=== PATIENT | male | born 1980 | race African-American/Black ===

== ENCOUNTER 2020-12-07 07:04 | Inpatient (IN) | payer MEDICARE, MEDICAID ==
[2020-12-07] MEDS ORDERED: Ondansetron PF 4 MG/2 ML Vial ONE (07:07)
[2020-12-07 07:36] LABS: #Monocytes 0.2 thou/uL (0.11-0.59); #Neutrophils 10.3 thou/uL (1.40-6.50); %Basophils 0.2 % (0.0-1.0); %Lymphocytes 8.8 % (21.0-51.0); %Monocytes 1.3 % (0.0-10.0); %Neutrophils 89.7 % (42.0-75.0); Hemoglobin 14.2 g/dL (14.0-18.0); Mean Corpuscular HGB CONC 32.3 g/dL (32.0-36.0); Mean Corpuscular Hemoglobin 33.4 pg (27.0-31.0); Mean Platelet Volume 5.7 fL (7.4-10.4); Platelet Count 498 thou/uL (130-400); Red Blood Cell (RBC) Count 4.25 mill/uL (4.70-6.10); White Blood Cell (WBC) Count 11.5 thou/uL (4.8-10.8)
[2020-12-07 07:52] LABS: Acetaminophen Less than 6.0 mcg/mL (10.0-30.0); Alcohol Less than 10 mg/dL (Less than 10); Salicylate Less than 8.0 mg/dL (15.0-30.0)
[2020-12-07 07:56] LABS: ALT (SGPT) 10 U/L (8-55); AST (SGOT) 17 U/L (5-34); Albumin 4.1 g/dL (3.5-5.0); Alkaline Phosphatase 79 U/L (40-110); Anion Gap 15 mmol/L (10-20); BUN (Urea Nitrogen) 6 mg/dL (8.9-20.6); Bilirubin, Total 0.5 mg/dL (0.2-1.2); Calc. Creatinine Clearance 0 mL/min (70-130); Calcium 9.5 mg/dL (7.8-10.44); Carbon Dioxide 28 mmol/L (22-29); Chloride 105 mmol/L (98-107); Globulin 4.1 g/dL (2.4-3.5); Glucose 134 mg/dL (70-105); Lipase 11 U/L (8-78); Potassium 3.9 mmol/L (3.5-5.1); Protein, Total 8.2 g/dL (6.0-8.3); Sodium 144 mmol/L (136-145)
[2020-12-07] MEDS ORDERED: Promethazine HCl 25 MG/ML VIAL ONE (08:24)
[2020-12-07 09:24] LABS: Bilirubin Negative (Negative); Blood, Urine Trace (Negative); Glucose, Urine (Dipstick) Negative (Negative); Ketone, Urine 15 mg/dL (Negative); Leukocyte Trace (Negative); Nitrite Negative (Negative); Protein, Urine (Dipstick) 30 mg/dL (Neg-Trace)
[2020-12-07 09:33] LABS: Amphetamine Not Detected (NotDetected); Barbiturates Screen Not Detected (NotDetected); Benzodiazepine Screen Not Detected (NotDetected); Cocaine Metabolite Screen Not Detected (NotDetected); Medtox Control Line Valid? VALID (VALID); Methadone Not Detected (NotDetected); Methamphetamine Not Detected (NotDetected); Opiate Screen Not Detected (NotDetected); Oxycodone Screen Not Detected (NotDetected); Phencyclidine (PCP) Not Detected (NotDetected); THC/Cannabinoid Screen Detected (NotDetected); Tricyclic Screen Not Detected (NotDetected)
[2020-12-07 09:34] LABS: Clarity Hazy (Clear); pH, Urine Greater/Equal 9.0 (5.0-9.0)
[2020-12-07 09:35] LABS: Bacteria/HPF Rare-Few HPF (None Seen); RBC/HPF 0-3 HPF (0-3); Squamous Epithelial 0-3 HPF (0-3)
[2020-12-07] MEDS ORDERED: Haloperidol Lactate 5 MG/ML VIAL ONE (10:27)
[2020-12-07] MEDS ORDERED: cefTRIAXone\\ROCEPHIN 2 GM VIAL ONE (10:34)
[2020-12-07] MEDS ORDERED: diphenhydrAMINE 50 MG/ML VIAL ONE (11:03)
[2020-12-07] MEDS ORDERED: Iopamidol 370 76% 100 ML VIAL ONE (11:24)
[2020-12-07] MEDS ORDERED: Bacitracin 1 PK ONE (12:50)
[2020-12-07 14:13] LABS: SARS-CoV-2 NAA Rapid Test Not Detected (NotDetected)
[2020-12-07] MEDS ORDERED: Acetaminophen 500 MG TAB PO PRN (16:37)
[2020-12-07] MEDS ORDERED: Ondansetron ODT 4 MG TAB PO PRN (16:37)
[2020-12-07] MEDS ORDERED: Polyethylene Glycol 3350 17 GM Packet PO PRN (16:40)
[2020-12-07] MEDS ORDERED: cefTRIAXone\\ROCEPHIN 1 GM VIAL ONE (21:23)
[2020-12-07] MEDS: cefTRIAXone\\ROCEPHIN 1 GM in Sodium Chloride 0.9% 100 ML IVPB SCH (22:36)
[2020-12-08 05:07] LABS: #Basophils 0.1 thou/uL (0.0-0.2); #Lymphocytes 2.5 thou/uL (1.20-3.40); #Monocytes 0.6 thou/uL (0.11-0.59); #Neutrophils 5.5 thou/uL (1.40-6.50); %Basophils 0.8 % (0.0-1.0); %Eosinophils 0.3 % (0.0-10.0); %Monocytes 6.3 % (0.0-10.0); %Neutrophils 63.5 % (42.0-75.0); Hemoglobin 12.5 g/dL (14.0-18.0); Mean Corpuscular HGB CONC 32.1 g/dL (32.0-36.0); Mean Corpuscular Hemoglobin 33.2 pg (27.0-31.0); Mean Platelet Volume 5.7 fL (7.4-10.4); Platelet Count 477 thou/uL (130-400); RBC Distribution Width 12.1 % (11.5-14.5); Red Blood Cell (RBC) Count 3.77 mill/uL (4.70-6.10); White Blood Cell (WBC) Count 8.7 thou/uL (4.8-10.8)
[2020-12-08 05:23] LABS: ALT (SGPT) 11 U/L (8-55); AST (SGOT) 15 U/L (5-34); Albumin 3.4 g/dL (3.5-5.0); Alkaline Phosphatase 64 U/L (40-110); Anion Gap 12 mmol/L (10-20); BUN (Urea Nitrogen) 9 mg/dL (8.9-20.6); Bilirubin, Total 0.6 mg/dL (0.2-1.2); Calc. Creatinine Clearance 102 mL/min (70-130); Calcium 8.7 mg/dL (7.8-10.44); Carbon Dioxide 25 mmol/L (22-29); Chloride 108 mmol/L (98-107); Globulin 3.5 g/dL (2.4-3.5); Glucose 90 mg/dL (70-105); Potassium 3.2 mmol/L (3.5-5.1); Protein, Total 6.9 g/dL (6.0-8.3); Sodium 142 mmol/L (136-145)
[2020-12-08] MEDS ORDERED: Potassium Chloride 20 MEQ TAB PO SCH (07:45)
[2020-12-08] MEDS ORDERED: Saccharomyces boulardii 250 MG CAP PO SCH (09:00)
[2020-12-08] MEDS: cefTRIAXone\\ROCEPHIN 1 GM in Sodium Chloride 0.9% 100 ML IVPB SCH ×2 (10:45→20:19)
[2020-12-08 18:10] VITALS: BP 147/95; TEMP 98.8
== END 2020-12-08 21:26 | disposition left against medical advice (07) | DRG 698 ==
LOC: BURERS 07:04 → BURMED 11:55
PROVIDERS: ADMIT Family Medicine; ATTEND Family Medicine
DX: T83.518A Infection and inflammatory reaction due to other urinary catheter, initial encounter (principal); L89.154 Pressure ulcer of sacral region, stage 4; N39.0 Urinary tract infection, site not specified; G82.20 Paraplegia, unspecified; K59.00 Constipation, unspecified; R11.2 Nausea with vomiting, unspecified; Y84.6 Urinary catheterization as the cause of abnormal reaction of the patient, or of later complication, without mention of misadventure at the time of the procedure; F12.10 Cannabis abuse, uncomplicated; Z20.822 Contact with and (suspected) exposure to COVID-19; Z71.51 Drug abuse counseling and surveillance of drug abuser; Z98.890 Other specified postprocedural states
CPT/HCPCS: 36415; 74022; 74177; 80053; 80306; 80307; 81003; 81015; 83690; 85025; 87040; 87086; J0696; J1200; J1630; J2405; J2550; J3490; Q9967; U0002